=== PATIENT | female | born 1965 | race Caucasian/White ===

== ENCOUNTER 2024-07-08 09:50 | Outpatient (NON) | payer OTHER, SELFPAY ==
--- OUTSIDE RECORDS SUMMARY | 2024-07-08 10:59 | XMS_ITS | CONTINUITY OF CARE DOCUMENT ---
Author Name jazmine lucero Address Unknown Organization [facility] Address [address] [place] [address] Phone [phone] Care Team Providers Care Marble [employer]ber Name Role Phone Cuauhtemoc CARLOS, Jose Carlos Unavailable [phone] JURGEN JACOBO MD Unavailable [phone] JURGEN JACOBO MD Unavailable [phone] PROBLEMS Condition Status Date Provider Notes HYPERCHOLESTEROLEMIA;WILL TR Y LIPTRUZET active Jose Carlos Posadas MD HTN;LABS PER PRIMARY, BETTER AT HOME active Jose Carlos Posadas MD MITRAL REGURGITATION MILD;05 completed 200 11/26/19 - Jose Carlos Posadas MD TOBACCO ABUSE;CHANTAX NOT EFFECTIVE active Jose Carlos Posadas MD LVH;EF 60% completed - Jose Carlos Posadas MD BRADYCARDIA, SINUS;NOT DUE T O MEDS active Jose Carlos Posadas MD ATRIAL SEPTAL DEFECT; BY ECH O 05, NOT SEEN 2008 completed - Jose Carlos Posadas MD DIZZINESS;GONE WITHOUT BETABLOCKER active - Jose Carlos Posadas MD CHEST PAIN, ATYPICALL;NEG ROUTINE STRESS SUB MAX 2008 completed - Jose Carlos Posadas MD SNORING;NO SLEEP APNEA active Jose Carlos Posadas MD CARDIOMEGALY;MILD BY CXR 201 0, NOT ON ECHO 2008 completed - Jose Carlos Posadas MD FAMILY HISTORY OF HEART DISEASE active Brian Posadas MD COPD;NEG CHEYANNE 2009 active Jose Carlos Posadas MD DIAPHORESIS;SPELLS WITHOUT KNOWN ETIOLOGY completed - Jose Carlos Posadas MD OBESITY;WILL CONSIDER [facility] active Neha Posadas MD CAD;NML NUC AND ECHO 2010 active Jose Carlos steele MD ENCOUNTERS Date Type Provider Location Encounter Diag nosis - In-person encounter Office Visit Jose Carlos Posadas MD [facility] HYPERCHOLESTEROLEMIA;MEIR L TRY LIPTRUZETHTN;LABS PER PRIMARY, BETTER AT HOMETOBACCO ABUSE;CHANTAX NOT EFFECTIVEDIAPHORESIS;SPE LLS WITHOUT KNOWN ETIOLOGYOBESITY;WILL CONSIDER [facility] - In-person encounter Office Visit Jose Carlos Posadas MD [facility] TOBACCO ABUSE;CHANTAX NOT EFFECTIVEBRADYCARDIA, SINUS;NOT DUE TO MEDSATRIAL SEPTAL DEFECT; BY ECHO 05, NOT SEEN 2009DIZZINESS;GONE WITHOUT BETABLOCKERCHEST PAIN, ATYPICALL;NEG ROUTINE STRESS SUB MAX 2009SNORING;NO SLEEP APNEACARDIOMEGALY;MILD BY CXR 2009, NOT ON ECHO 2009COPD;NEG CHEYANNE 2010CAD;NML NUC AND ECHO 2010 - In-person encounter Office Visit Jose Carlos Posadas MD [facility] MITRAL REGURGITATION MILD;05LVH;EF 60% 05BRADYCARDIA, SINUS;NOT DUE TO MEDSSNORING;NO SLEEP APNEAFAMILY HISTORY OF HEART DISEASECOPD;NEG CHEYANNE 2010DIAPHORESIS;SPELLS WITHOUT KNOWN ETIOLOGYOBESITY;WILL CONSIDER [facility] - In-person encounter Office Visit Jose Carlos Posadas MD [facility] HYPERCHOLESTEROLEMIA;MEIR L TRY LIPTRUZETHTN;LABS PER PRIMARY, BETTER AT HOMETOBACCO ABUSE;CHANTAX NOT EFFECTIVEBRADYCARDIA, SINUS;NOT DUE TO MEDSATRIAL SEPTAL DEFECT; BY ECHO 05, NOT SEEN 2009DIZZINESS;GONE WITHOUT BETABLOCKERCHEST PAIN, ATYPICALL;NEG ROUTINE STRESS SUB MAX 2008 VITAL SIGNS Date Observation Value Provider blood pressure, diastolic, left arm 92 mm [Hg] Santiago Jean RN blood pressure, systolic, left arm 161 mm [Hg] Santiago Whitneysilvia COLE blood pressure, diastolic, right arm 93 m m[Hg] Santiago Whitneysilvia COLE blood pressure, systolic, right arm 151 m m[Hg] Santiago Jean DOUGLAS blood pressure, diastolic 92 mm[Hg] Manpreet alanis Jean RN blood pressure, systolic 161 mm[Hg] Santiago Whitneysilvia COLE pulse rate 86 /min Santiago Whitneysilvia COLE oxygen saturation, oximetry 98 % Santiago Whitneysilvia COLE respiratory rate E&M 16 /min Santiago barlow RN Body Mass Index (Ratio) 30.84 kg/m2 Santiago Whitneysilvia COLE weight E&M 179 [lb_av] Santiago Whitneysilvia COLE height E&M 64 [in_i] Santiago Whitneysilvia COLE blood pressure, diastolic, left arm 94 mm [Hg] Lawrence Manacop blood pressure, systolic, left arm 145 mm [Hg] Lawrence Manacop blood pressure, diastolic, right arm 86 m m[Hg] Lawrence Manacop blood pressure, systolic, right arm 132 m m[Hg] Lawrence Manacop blood pressure, diastolic 86 mm[Hg] Deepali lynda Man[place] blood pressure, systolic 132 mm[Hg] Viet sarabia Manacop pulse rate 78 /min Lawrence Manacop oxygen saturation, oximetry 97 % Lawrence Manacop respiratory rate E&M 20 /min Lawrence Manacop weight E&M 178 [lb_av] Lawrence Manacop blood pressure, diastolic, left arm 62 mm [Hg] Santiago Whitneysilvia COLE blood pressure, systolic, left arm 123 mm [Hg] Santiago Whitneysilvia COLE blood pressure, diastolic, right arm 72 m m[Hg] Santiago Whitneysilvia COLE blood pressure, systolic, right arm 124 m m[Hg] Santiago Whitneysilvia COLE blood pressure, diastolic 62 mm[Hg] Manpreet Jean RN blood pressure, systolic 123 mm[Hg] Santiago Miranda COLE pulse rate 52 /min Santiago Jean RN oxygen saturation, oximetry 98 % Santiago Jean RN respiratory rate E&M 16 /min Santiago Elijah barlow RN weight E&M 175 [lb_av] Santiago Jean RN blood pressure, diastolic 84 mm[Hg] Be tsy Chung blood pressure, systolic 128 mm[Hg] Bet chino Chung blood pressure, diastolic 90 mm[Hg] Da tiffany Porras blood pressure, systolic 125 mm[Hg] Sammy Porras pulse rate 56 /min Tanya Porras oxygen saturation, oximetry 96 % Tanya Porras respiratory rate E&M 16 /min Rosales Porras weight E&M 177 [lb_av] Tanya Porras ALLERGIES Allergy Name Onset Date Reaction Criticality Status ATENOLOL dizzy Low Criticality active RESULTS Date Observation Value Provider Reference Range Interpretation Location 3 triglyceride, serum, fasting 211 mg/dL [facility] 3 HDL cholesterol, serum 49 mg/dL [facility] 3 LDL cholesterol, serum 112 mg/dL [facility] 3 cholesterol, serum 204 mg/dL [facility] HISTORY OF MEDICATION USE Medication Status Instructions Dates Provider Indications Com ments LISINOPRIL 5 MG ORAL TABLET active ONE TAB. DAILY Ann Choi RN ZETIA 10 MG ORAL TABLET active ONE TAB. DAILY Ann Choi RN LIPTRUZET 10/40MG completed one tablet daily - Ann Choi RN LIPITOR 40 MG ORAL TABLET active one a day Ann Choi RN ESTRADIOL 0.1 MG/24HR TRANSDERMAL PATCH WEEKLY active daily Santiago Jean RN CHANTIX STARTING MONTH FRANCIE 0.5 MG X 11 & 1 MG X 42 ORAL TABLET completed One Pack. Take as directed. - Santiago Jean RN CHANTIX CONTINUING MONTH FRANCIE 1 MG ORAL TABLET completed One pack. Take as directed - Santiago Jean RN TRAZODONE HCL 50 MG ORAL TABLET active 1 tablet by mouth at bedtime Lawrence Carrion VENLAFAXINE HCL TABLET active 150mg daily Lawrence Carrion per patient's med list ASPIRIN 81 MG ORAL TABLET active ONE TAB. DAILY Jose Carlos Posadas MD ZETIA 10 MG ORAL TABLET completed ONE TAB. DAILY - Deepali Armstrong ATIVAN 0.5 MG ORAL TABLET active 1 tablet by mouth at bedtime Lawrence Carrion LEXAPRO 20 MG ORAL TABLET completed ONE TAB. DAILY - Santiago Jean RN PRAVACHOL 40 MG ORAL TABLET completed ONE TAB. DAILY - Jose Carlos Posadas MD ZESTRIL 5 MG ORAL TABLET completed ONE TAB. DAILY - Deepali Armstrong PRILOSEC 40 MG ORAL CAPSULE DELAYED RELEASE active ONE TAB. DAILY Misti Malik SOCIAL HISTORY Date Observation Value Provider chewing tobacco use no Jose Carlos horn MD cigar use no Jose Carlos Akers smoking/tobacco cess ation, patient education and counseling yes Jose Carlos Posadas MD alcohol use, average drinks per day social Santiago Jean RN drug use no Santiago Jean RN passive cigarette sm [place] exposure no Santiago Jean RN smoking history, tot al pack/day 1/8 Santiago Jean RN smoking history, tot al pack/year 30 Santiago Jean RN cigarette use yes Santiago Jean RN smoking, date started 1982 Royal alvarez RN social history reviewed E&M reviewed Santiago Jean RN smoking status smoker - current status unknown Deepali Armstrong social history reviewed E&M reviewed Jose Carlos Posadas MD smoking/tobacco cess ation, patient education and counseling yes Santiago Jean RN social history reviewed E&M reviewed Santiago Jean RN smoking status current Shayla Chung smoking/tobacco cess ation, patient education and counseling yes Santiago Jean RN social history E&M Marital Statu s: L divina with family/friends E thnicity: Santiago Jean RN social history reviewed E&M reviewed Santiago Jean RN physical exercise, f requency, days per week no [employer] caffeine use, averag e drinks per day yes [facility] alcohol use, average drinks per day none [facility] number of years as a smoker 10 years or m ore [facility] smoking status Smoker [facility] FUNCTIONAL STATUS Date Observation Value Provider periodic limb movement index absent (0) Shayla Chung MENTAL STATUS Date Observation Value Provider assessment of judgme nt and insight E&M Alert and oriented to time, place and person. Mood and affect are normal. Santiago Jean RN assessment of judgme nt and insight E&M Alert and oriented to time, place and person. Mood and affect are normal. Jose Carlos Posadas MD assessment of judgme nt and insight E&M Alert and oriented to time, place and person. Mood and affect are normal. Santiago Jean RN assessment of judgme nt and insight E&M Alert and oriented to time, place and person. Mood and affect are normal. Santiago Jean RN INSURANCE PROVIDERS Payer name Policy type / Coverage type [facility] ID ROCCO [facility] [id number] [address] [facility] [id number] TREATMENT PLAN Date Name Performer routine: O rders: Jovani milton Echo (CPT-53099) Jose Carlos Posadas MD routine: H er updated medication list for this problem includes: Zestril 5 Mg Tabs (Lisinopril) ..... One tab. daily Aspirin 81 Mg Tabs (Aspirin) ..... One tab. daily BP today: 161/92 P rior BP: 132/86 (11/11/2010) Prior 10 Yr Risk Heart Disease: Not enough information (11/13/2008) Orders: Jovani milton Echo (CPT-54538) Jose Carlos Posadas MD routine Jose Carlos Posadas MD routine: H er updated medication list for this problem includes: Zestril 5 Mg Tabs (Lisinopril) ..... One tab. daily Aspirin 81 Mg Tabs (Aspirin) ..... One tab. daily BP today: 161/92 Prior BP: 132/86 (11/11/2010) N uclear Stress Findings: 1. Regadenoson mediated myocardial perfusion study 2 . Normal left ventricular systolic function with a calculated ejection fraction of 56%. 3 . No obvious significant scintigraphic evidence of myocardial ischemia or scar. (11/26/2009) Orders: Jovani omplete Echo (CPT-99341) Jose Carlos Posadas MD routine: O rders: Jovani omplete Echo (CPT-04411) Jose Carlos Posadas MD routine: B P today: 161/92 Prior BP: 132/86 (11/11/2010) Pulmonary Functions Reviewed: O 2 sat: 98 (12/20/2012) Orders: Jovani omplete Echo (CPT-02952) Jose Carlos Posadas MD routine: H er updated medication list for this problem includes: Zestril 5 Mg Tabs (Lisinopril) ..... One tab. daily Pravachol 40 Mg Tabs (Pravastatin sodium) ..... One tab. daily Zetia 10 Mg Tabs (Ezetimibe) ..... One tab. daily Aspirin 81 Mg Tabs (Aspirin) ..... One tab. daily BP today: 161/92 Prior BP: 132/86 (11/11/2010) N uclear Stress Findings: 1. Regadenoson mediated myocardial perfusion study 2 . Normal left ventricular systolic function with a calculated ejection fraction of 56%. 3 . No obvious significant scintigraphic evidence of myocardial ischemia or scar. (11/26/2009) Orders: E KG (CPT-78435) C omplete Echo (CPT-37360) Jose Carlos Posadas MD Yearly follow-up: H er updated medication list for this problem includes: Pravachol 40 Mg Tabs (Pravastatin sodium) ..... One tab. daily Zetia 10 Mg Tabs (Ezetimibe) ..... One tab. daily Jose Carlos Posadas MD Yearly follow-up Jose Carlos Akers Yearly follow-up: O rders: X -Ray, Chest, PA & Lateral (CPT-03835) Jose Carlos Posadas MD Yearly follow-up: H er updated medication list for this problem includes: Zestril 5 Mg Tabs (Lisinopril) ..... One tab. daily Pravachol 40 Mg Tabs (Pravastatin sodium) ..... One tab. daily Zetia 10 Mg Tabs (Ezetimibe) ..... One tab. daily Aspirin 81 Mg Tabs (Aspirin) ..... One tab. daily Orders: X -Ray, Chest, PA & Lateral (CPT-54176) Jose Carlos Posadas MD Yearly follow-up: O rders: X -Ray, Chest, PA & Lateral (CPT-55887) Jose Carlos Posadas MD Yearly follow-up: O rders: X -Ray, Chest, PA & Lateral (CPT-64506) Jose Carlos Posadas MD Yearly follow-up: H er updated medication list for this problem includes: Zestril 5 Mg Tabs (Lisinopril) ..... One tab. daily Aspirin 81 Mg Tabs (Aspirin) ..... One tab. daily Orders: X -Ray, Chest, PA & Lateral (CPT-64498) Jose Carlos Posadas MD Yearly follow-up: H er updated medication list for this problem includes: Zestril 5 Mg Tabs (Lisinopril) ..... One tab. daily Ativan 0.5 Mg Tabs (Lorazepam) ..... 1 tablet by mouth at bedtime Aspirin 81 Mg Tabs (Aspirin) ..... One tab. daily Orders: E KG (CPT-56631) X -Ray, Chest, PA & Lateral (CPT-16233) Jose Carlos Posadas MD palpitations- fatigu e : O rders: S lee Study (*) C omplete Echo (CPT-00208) H olter Monitor 24 Hr (CPT-59864) S pirometry (CPT-36467) Jose Carlos Posadas MD palpitations- fatigu e : O rders: S tress Test - Adenosine (96123) Jose Carlos Posadas MD palpitations- fatigu e : H er updated medication list for this problem includes: Zestril 5 Mg Tabs (Lisinopril) ..... One tab. daily intstead of atenolol to improve dizziness Aspirin 81 Mg Tabs (Aspirin) ..... One tab. daily Orders: S leep Study (*) C omplete Echo (CPT-57391) H olter Monitor 24 Hr (CPT-58577) S pirometry (CPT-69920) S tress Test - Adenosine (37521) Jose Carlos Posadas MD palpitations- fatigu e : H er updated medication list for this problem includes: Zestril 5 Mg Tabs (Lisinopril) ..... One tab. daily intstead of atenolol to improve dizziness Aspirin 81 Mg Tabs (Aspirin) ..... One tab. daily BP today: 123/62 P rior BP: 128/84 (11/13/2008) Prior 10 Yr Risk Heart Disease: Not enough information (11/13/2008) Orders: S leep Study (*) C omplete Echo (CPT-62157) Jose Carlos Posadas MD palpitations- fatigu e : H er updated medication list for this problem includes: Pravachol 40 Mg Tabs (Pravastatin sodium) ..... One tab. daily Zetia 10 Mg Tabs (Ezetimibe) ..... One tab. daily BP today: 123/62 Prior BP: 128/84 (11/13/2008) Jose Carlos Posadas MD palpitations- fatigu e : B P today: 123/62 Prior BP: 128/84 (11/13/2008) E chocardiogram: Normal left ventricular systolic function. Normal left ventricular size. Normal left ventricular wall thickness. Normal E/E` 4.0. LVEF 60%. Normal pericardium with no significant pericardial effusion. N ormal aortic root. GC (11/28/2008) Orders: H olter Monitor 24 Hr (CPT-05573) S pirometry (CPT-61124) S tress Test - Adenosine (92107) Jose Carlos Posadas MD palpitations- fatigu e : H er updated medication list for this problem includes: Zestril 5 Mg Tabs (Lisinopril) ..... One tab. daily intstead of atenolol to improve dizziness Aspirin 81 Mg Tabs (Aspirin) ..... One tab. daily BP today: 123/62 Prior BP: 128/84 (11/13/2008) Orders: C omplete Echo (CPT-38368) H olter Monitor 24 Hr (CPT-75211) S pirometry (CPT-92385) S tress Test - Adenosine (03014) Jose Carlos Posadas MD palpitations- fatigu e : H er updated medication list for this problem includes: Zestril 5 Mg Tabs (Lisinopril) ..... One tab. daily intstead of atenolol to improve dizziness Ativan 0.5 Mg Tabs (Lorazepam) Aspirin 81 Mg Tabs (Aspirin) ..... One tab. daily BP today: 123/62 Prior BP: 128/84 (11/13/2008) E chocardiogram: Normal left ventricular systolic function. Normal left ventricular size. Normal left ventricular wall thickness. Normal E/E` 4.0. LVEF 60%. Normal pericardium with no significant pericardial effusion. N ormal aortic root. (11/28/2008) O rders: C omplete Echo (CPT-24373) H olter Monitor 24 Hr (CPT-11893) S pirometry (CPT-30363) S tress Test - Adenosine (29066) Jose Carlos Posadas MD palpitations- fatigu e : O rders: S lee Study (*) C omplete Echo (CPT-33065) H olter Monitor 24 Hr (CPT-59523) S pirometry (CPT-29461) S tress Test - Adenosine (78888) Jose Carlos Posadas MD palpitations- fatigu e : H er updated medication list for this problem includes: Zestril 5 Mg Tabs (Lisinopril) ..... One tab. daily intstead of atenolol to improve dizziness Ativan 0.5 Mg Tabs (Lorazepam) Aspirin 81 Mg Tabs (Aspirin) ..... One tab. daily BP today: 123/62 Prior BP: 128/84 (11/13/2008) E chocardiogram: Normal left ventricular systolic function. Normal left ventricular size. Normal left ventricular wall thickness. Normal E/E` 4.0. LVEF 60%. Normal pericardium with no significant pericardial effusion. N ormal aortic root. (11/28/2008) Jose Carlos Posadas MD palpitations- fatigu e : H er updated medication list for this problem includes: Zestril 5 Mg Tabs (Lisinopril) ..... One tab. daily intstead of atenolol to improve dizziness Aspirin 81 Mg Tabs (Aspirin) ..... One tab. daily BP today: 123/62 Prior BP: 128/84 (11/13/2008) E chocardiogram: Normal left ventricular systolic function. Normal left ventricular size. Normal left ventricular wall thickness. Normal E/E` 4.0. LVEF 60%. Normal pericardium with no significant pericardial effusion. N ormal aortic root. (11/28/2008) Orders: H olter Monitor 24 Hr (CPT-10666) S pirometry (CPT-35679) S tress Test - Adenosine (95331) Jose Carlos Posadas MD sinusbrady due to me ds, will change due to dizzyness: H er updated medication list for this problem includes: Zestril 5 Mg Tabs (Lisinopril) ..... One tab. daily intstead of atenolol to improve dizziness Aspirin 81 Mg Tabs (Aspirin) ..... One tab. daily Orders: S tress Test - Routine (CPT-54374) BP today: 125/90 Prior BP: / () E chocardiogram: LVH. EF 60%. Diastolic dysfunction. Trno-ps-hkwwj shunt at interatrial septum. ASD to be considered. SIXTO is suggested. Trace MR. Trace PI. Trace TR. [facility] (06/23/2004) Jose Carlos Posadas MD sinusbrady due to me ds, will change due to dizzyness: H er updated medication list for this problem includes: Zestril 5 Mg Tabs (Lisinopril) ..... One tab. daily intstead of atenolol to improve dizziness Ativan 0.5 Mg Tabs (Lorazepam) Aspirin 81 Mg Tabs (Aspirin) ..... One tab. daily BP today: 125/90 Prior BP: / () E chocardiogram: LVH. EF 60%. Diastolic dysfunction. Cxzi-iq-whlhy shunt at interatrial septum. ASD to be considered. SIXTO is suggested. Trace MR. Trace PI. Trace TR. [facility] (06/23/2004) Jose Carlos Posadas MD sinusbrady due to me ds, will change due to dizzyness: O rders: C omplete Echo (CPT-09528) Jose Carlos Posadas MD sinusbrady due to me ds, will change due to dizzyness: H er updated medication list for this problem includes: Zestril 5 Mg Tabs (Lisinopril) ..... One tab. daily intstead of atenolol to improve dizziness Ativan 0.5 Mg Tabs (Lorazepam) Aspirin 81 Mg Tabs (Aspirin) ..... One tab. daily BP today: 125/90 Prior BP: / () E chocardiogram: LVH. EF 60%. Diastolic dysfunction. Tejm-ba-wxrip shunt at interatrial septum. ASD to be considered. SIXTO is suggested. Trace MR. Trace PI. Trace TR. [facility] (06/23/2004) Jose Carlos Posadas MD sinusbrady due to me ds, will change due to dizzyness: H er updated medication list for this problem includes: Pravachol 40 Mg Tabs (Pravastatin sodium) ..... One tab. daily Zetia 10 Mg Tabs (Ezetimibe) ..... One tab. daily BP today: 125/90 Prior BP: / () Jose Carlos Posadas MD sinusbrady due to me ds, will change due to dizzyness: H er updated medication list for this problem includes: Zestril 5 Mg Tabs (Lisinopril) ..... One tab. daily intstead of atenolol to improve dizziness Aspirin 81 Mg Tabs (Aspirin) ..... One tab. daily BP today: 125/90 Jose Carlos Posadas MD sinusbrady due to me ds, will change due to dizzyness: H er updated medication list for this problem includes: Zestril 5 Mg Tabs (Lisinopril) ..... One tab. daily intstead of atenolol to improve dizziness BP today: 125/90 Prior BP: / () E chocardiogram: LVH. EF 60%. Diastolic dysfunction. Oayn-nw-ugkxe shunt at interatrial septum. ASD to be considered. SIXTO is suggested. Trace MR. Trace PI. Trace TR. [facility] (06/23/2004) Jose Carlos Posadas MD Date Name LIPID PANEL Complete Echo X-Ray, Chest, PA & L ateral Stress Test - Adenos ine Spirometry Holter Monitor 24 Hr Complete Echo Sleep Study X-Ray, Chest, PA & L ateral Complete Echo Stress Test - Routin e HISTORY OF PROCEDURES Procedure Date Procedure Name Provider Procedure Notes S tatus ePrescribe - Check t his box if eRx is used Jose Carlos Posadas MD completed EKG Jose Carlos Posadas MD complete d EKG Jose Carlos Posadas MD complete d EKG Jose Carlos Posadas MD complete d EKG Jose Carlos Posadas MD complete d
--- OUTSIDE RECORDS SUMMARY | 2024-07-08 10:59 | XMS_ITS | Clinical Summary ---
Author Organization [facility] Address [address] [place] [address] Care Team Providers Care Cattle Sorter Name Role Phone Diallo Torres MD Primary Care Provider [phone] Allergies Active Allergy Reactions Criticality Noted Date Comments Ciprofloxacin Rash Low 10/04/2019 Sulfamethoxazole-Trimethoprim Rash Medium 2019 Medications busPIRone 10 MG tablet Take 10 mg by mouth 3 (three) times daily. 2 01/24/20 19 Active aspirin EC 81 MG tablet Take 81 mg by mouth daily. Active albuterol sulfate HFA (PROAIR HFA) 108 (90 Base) MCG/ACT inhaler Inhale 2 puffs into the lungs every 4 (four) hours as needed. 01/27/20 15 Active acyclovir 5 % ointment Apply 1 Application topically daily as needed. 04/25/19 15 Active Cholecalciferol (VITAMIN D) 50 MCG (2000 UT) Tab Take 2,000 Units by mouth daily. Active dicyclomine 10 MG capsule Take 10 mg by mouth as needed. Active divalproex ER 500 MG 24 hr tablet Take 500 mg by mouth daily. 6 01/24/20 19 Active ezetimibe 10 MG tablet Take 10 mg by mouth daily. 11/27/19 15 Active lisinopril 10 MG tablet Take 10 mg by mouth daily. Active omeprazole 40 MG capsule Take 40 mg by mouth daily. 01/27/20 15 Active LORazepam 0.5 MG tablet Take 0.5 mg by mouth daily as needed. 01/06/20 15 Active celecoxib (CELEBREX) 200 MG capsule Take 1 capsule (200 mg total) by mouth 2 (two) times daily. 04/18/19 25 Active cyclobenzaprine (FLEXERIL) 10 MG tablet Take 1 tablet (10 mg total) by mouth 3 (three) times daily. 05/23/19 25 Active DULoxetine (CYMBALTA) 60 MG capsule Take 1 capsule (60 mg total) by mouth daily. 04/17/19 25 Active fenofibrate (TRICOR) 145 MG tablet Take 1 tablet (145 mg total) by mouth daily. 04/17/19 25 Active rosuvastatin (CRESTOR) 5 MG tablet Take 1 tablet (5 mg total) by mouth daily. 08/07/19 24 Active atorvastatin 40 MG tablet Take 40 mg by mouth daily. 01/27/20 15 025 Discontin ued(Thera py completed ) docusate sodium 100 MG capsule Take 100 mg by mouth. 07/05/19 025 Discontin ued(Thera py completed ) estradiol 1 MG tablet Take 1 mg by mouth daily. 01/27/20 15 025 Discontin ued(Thera py completed ) meloxicam 15 MG tablet Take 15 mg by mouth daily. 5 01/24/20 19 025 Discontin ued(Thera py completed ) metaxalone 800 MG tablet Take 800 mg by mouth 3 (three) times daily as needed. 3 01/24/20 19 025 Discontin ued(Thera py completed ) ondansetron 4 MG disintegrating tablet Take 4 mg by mouth every 8 (eight) hours as needed. 01/27/20 15 025 Discontin ued(Thera py completed ) Venlafaxine HCl (VENLAFAXINE XR) 225 MG TABLET SR 24 HR 24 hr tablet Take 225 mg by mouth daily. 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) 11/12/2009 Bradycardia, sinus 11/13/2008 Essential (primary) hypertension 11/13/2008 Encounters Date Type Department Care Team Description 05/15/2024 Telephone [facility] [address] [facility] [place] [address] Ander Grimm, RADON INSPECTOR Appointment Request from Last 3 Months Immunizations Immunization Administration Dates Next Due MODERNA COVID-19 (12+) MRNA, LNP-S, PF, 100 MCG/ 0.5 ML DOSE 04/13/2020,03/16/2020 Family History Medical History Relation Comments Cancer Brother Heart Disease Brother Hypertension Father Cancer Maternal Grandmother Hypertension Mother Stroke Mother Cancer Paternal Grandmother Cancer Sister Heart Disease Sister Relation Status Comments Brother Father Maternal Grandmother Mother Paternal Grandmother Sister Social History Tobacco Use Types Packs/Day Years Used Date Smoking Tobacco: Every Day Cigarettes Smokeless Tobacco: Never Alcohol Use Standard Drinks/Week Comments Not Currently 0 (1 standard drink = 0.6 oz pur e alcohol) Comments Unknown Sex and Gender Information Value Date Recorded Sex Assigned at Not on file Legal Sex Female 10:54 PM CDT Gender Identity Not on file Sexual Orientation Not on file Last Filed Vital Signs Vital Sign Reading Time Taken Comments Blood Pressure 150/66 10/04/2019 9:05 AM CDT Pulse 69 10/04/2019 9:05 AM CDT Temperature 36 C (96.8 F) 10/04/2019 9:05 AM CDT Respiratory Rate 18 10/04/2019 9:05 AM CDT Oxygen Saturation 100% 10/04/2019 9:05 AM CDT Inhaled Oxygen Concentration - - Weight 83.5 kg (184 lb) 09/30/2019 11:14 AM CDT Height 162.6 cm (5' 4 ) 09/30/2019 11:14 AM CDT Body Mass Index 31.58 09/30/2019 11:14 AM CDT Plan of Treatment Health Maintenance Due Date Last Done Comments ASCVD LDL 1963 Annual Physical 1966 Hepatitis C 1981 DTaP, Tdap and Td Vaccines ( 1 - Tdap) 1982 Pneumococcal Vaccine: 50+ Years (1 of 2 - PCV) 1982 Zoster Vaccines (1 of 2) 2013 RSV Immunization or 60+ Years (1 - Risk 60-74 years 1-dose series) 2023 COVID-19 Vaccine (2023-2 5 season) 2023 04/13/2020, 03/16/2020 Mammogram Screening 10/28/2024 10/28/2022, 05/28/2021, 01/24/2020 Colorectal Cancer Screening Colonoscopy (10 Years) 10/03/2029 10/04/2019, 10/04/2019 Meningococcal B Vaccine Aged Out No l onger eligible based on patient's age to complete this topic Meningococcal Vaccine Aged Out No lili erika eligible based on patient's age to complete this topic RSV Immunizations Under 20 Months Aged Out No longer eligible b ased on patient's age to complete this topic Procedures Procedure Name Priority Date/Time Associated Diagnosis Comments MG SCREENING W GALILEO ALBINO DIGI Routine 10/28/2022 1:29 PM CDT Visit for screening mammogram COLONOSCOPY 10/04/2019 8:31 AM CDT from Last 3 Months or Most Recently Relevant to Health Maintenance Results * MG SCREENING W GALILEO ALBINO DIGI (10/28/2022 1:29 PM CDT) Anatomical Region Laterality Modality Breast Bilateral Mammography 10/31/2022 9:43 AM CDT Narrative 10/31/2022 9:44 AM CDT EXAMINATION: BILATERAL SCREENING MAMMOGRAPHY Exam Date: 10/28/2022 12:28 PM CLINICAL INDICATION: 57 years of age female routine screening. COMPARISON: Dating back to 07/26/2013 TECHNIQUE: Digital CC & MLO views. Tomosynthesis imaging acquisition Study read with the assistance of a computer-aided detection system. TISSUE DENSITY: The breast tissue is heterogeneously dense, which may obscure small masses. FINDINGS: No suspicious grouping of microcalcifications, architectural distortion, or new dominant suspicious nodule 3 dimensionally demonstrated in either breast. IMPRESSION: No interval features to suggest malignancy. . RECOMMENDATION: Annual supplemental screening is encouraged for her with dense breast tissue. Highest sensitivity and cancer detection rate is with MRI breast with/without IV gadolinium contrast. If she cannot tolerate or get approval of MRI, then automated breast ultrasound screening is an alternative. Routine Screening, Bilateral Mammogram in 1 year ASSESSMENT: ACR BI-RADS 1 - NEGATIVE Ordered By: DIALLO TORRES Interpreted By: Reed Cornejo MD, 10/31/2022 9:43 AM us Diallo Torres MD MAMMO Final Resul t * COLONOSCOPY (10/04/2019 8:31 AM CDT) us Jordin Del Castillo MD GI PROCEDURE ORDERABLES Final Result from Last 3 Months or Most Recently Relevant to Health Maintenance Insurance [place] [id number] Care Teams Cattle Sorter Relationship Specialty Start Date End Date Diallo Torres MD [address] [place] [id number] PCP - General FAMILY PRACTICE 02/06/19
--- OUTSIDE RECORDS SUMMARY | 2024-07-08 10:59 | XMS_ITS | Encounter Summary ---
Author Organization [facility] Address [facility] [place] [address] Care Team Providers Care Prosthetics Assistant Name Role Phone Diallo Torres MD Primary Care Provider [phone] Encounter Details Date Type Department Care Team (Late st Contact Info) Description 08/25/2018 Abstract [facility]FL CONVERSION [address] [place] [address] , Generic Conversion, Social History Tobacco Use Types Packs/Day Years Used Date Smoking Tobacco: Never Assessed Comments Unknown Sex and Gender Information Value Date Recorded Sex Assigned at Not on file Legal Sex Female 10:54 PM CDT Gender Identity Not on file Sexual Orientation Not on file documented as of this encounter Plan of Treatment Not on file documented as of this encounter Visit Diagnoses Not on filedocumented in this encounter Additional Health Concerns Infection Onset Date Last Indicated Resolved Time COVID-19 Rule Out 10/01/2019 10/01/2019 10/02/2019 6:28 PM CDT documented as of this encounter Care Teams Prosthetics Assistant Relationship Specialty Start Date End Date Diallo Torres MD [address] [place] [id number] PCP - General FAMILY PRACTICE 02/06/19 documented as of this encounter
--- OUTSIDE RECORDS SUMMARY | 2024-07-08 10:59 | XMS_ITS | Encounter Summary ---
Author Organization [facility] Address [facility] [place] [address] Care Team Providers Care Pearl Maker Name Role Phone Diallo Torres MD Primary Care Provider [phone] Encounter Details Date Type Department Care Team (Late st Contact Info) Description 12/23/2022 [employer] Message [facility] [place] [address] [facility] Payment Plan Social History Tobacco Use Types Packs/Day Years [...] Diagnoses Not on filedocumented in this encounter Care Teams Pearl Maker Relationship Specialty Start Date End Date Diallo Torres MD [address] [place] [address] PCP - General FAMILY PRACTICE 02/06/19 documented as of this encounter
--- OUTSIDE RECORDS SUMMARY | 2024-07-08 10:59 | XMS_ITS | Encounter Summary ---
Author Organization [facility] Address [facility] [place] [address] Care Team Providers Care Supervisor Quilting Name Role Phone Diallo Torres MD Primary Care Provider [phone] Encounter Details Date Type Department Care Team (Late st Contact Info) Description 01/27/2022 [employer] Message [facility] Patient Accounts [address] [place], [place] [address] [facility] Provider Financial Assistance Social History Tobacco Use Types Packs/Day Years [...] on filedocumented in this encounter Care Teams Supervisor Quilting Relationship Specialty Start Date End Date Diallo Torres MD [address] [place] [id number] PCP - General FAMILY PRACTICE 02/06/19 documented as of this encounter
--- OUTSIDE RECORDS SUMMARY | 2024-07-08 11:00 | XMS_ITS | Patient Health Record ---
Author Organization [facility] Address [address] [facility] [address] [place] [address] Care Team Providers Care Housing Quality Standard Inspector Name Role Phone Diallo Torres Primary Care Provider Unavailab monique RAMOS MD, PELON Unavailable [phone] ALLERGIES Allergen (clinical drug ingredient) Drug/Non Drug Allergy documented on EMR Reaction Allergy Type Onset Date Status Septra rash Drug Allergy Active REASON FOR REFERRAL No Information MEDICATIONS Medication SIG (Take, Route, Frequency, Duration) Notes Start Date End Date Status Estradiol 1 MG 1 tablet Orally Ne y for Three Weeks, 1 Week off for 30 day(s) Active Omeprazole 40 MG 1 capsule Orally Onc e a day for 30 day(s) Active Meloxicam 15 MG 1 tablet Orally Once a day for 30 day(s) Active Ezetimibe 10 MG 1 tablet Orally Once a day for 30 day(s) Active Lisinopril 5 MG 1 tablet Orally Once a day for 30 day(s) Active Atorvastatin Calcium 40 MG 1 tablet Oral ly Once a day for 30 day(s) Active Aspirin 81 MG 1 tablet Orally Once a day for 30 day(s) Active Vitamin D Active Venlafaxine HCl ER 75 MG 3 caps Orally O nce a day for 30 day(s) Active Divalproex Sodium ER 500 MG as directed Orally Active SOCIAL HISTORY Tobacco Use: Social History Observation Description Date Details (start date - stop date) Current Smoker NA - NA Sex Assigned At : Social History Observation Description Sex Assigned At Unknown Tobacco Use/Smoking Question Answer Notes Are you a current smoker How often do you smoke cigarettes? every day Additional Findings: Tobacco User Heavy cigarett e smoker (20-39 cigs/day) PLAN OF TREATMENT No Information Insurance Providers Payer Name Payer Address Payer Phone Subscriber Number Group Number Insured Name Patient Relationship to Insured Coverage Start Date Coverage End Date [place] [address] [place] [address] [phone] [id number] Amanda Romero Self - patient is the insured [employer] [address] [place], [place] [id number] [phone] [id number] Amanda Romero Self - patient is the insured [place] [address] [place], [place] [id number] Amanda Romero Self - patient is the insured MEDICAL (GENERAL) HISTORY Medical History History ICD Code Appendiceal carcinoid Anxiety Depression Hypertension GERD Surgical History Surgery Date(Month/Year) Hysterectomy Right colectomy Colonoscopy 2017
--- OUTSIDE RECORDS SUMMARY | 2024-07-08 11:00 | XMS_ITS | Referral Summary ---
Author Organization [facility] Address [address] [place] [address] Care Team Providers Care Inner Diameter Grinder Tool Name Role Phone Diallo Torres MD Primary Care Provider [phone]- [phone] Allergies Active Allergy Reactions Criticality Noted Date Comments Sulfamethoxazole-Trimethoprim Rash Medium Medications meloxicam (MOBIC) 15 mg tablet Take 15 mg by mouth every morning Active lisinopril (PRINIVIL,ZESTR [place]) 10 mg tablet Take 10 mg by mouth every morning Active atorvastatin (LIPITOR) 40 mg tablet Take 40 mg by mouth every morning Active omeprazole (PriLOSEC) 40 mg capsule Take 40 mg by mouth every morning Active ezetimibe (ZETIA) 10 mg tablet Take 10 mg by mouth every morning Active divalproex DR (DEPAKOTE) 500 mg EC tablet Take 500 mg by mouth every morning Active venlafaxine 225 mg tablet extended release 24hr 24 hr tablet Take 225 mg by mouth daily with breakfast Active aspirin 81 mg enteric coated tablet Take 81 mg by mouth every morning Active LORazepam (ATIVAN) 0.5 mg tablet Take 0.5 mg by mouth every 6 (six) hours as needed for anxiety Active dicyclomine (BENTYL) 10 mg capsule Take 10 mg by mouth 3 (three) times a day Active cholecalciferol (VITAMIN D-3) 2,000 unit tablet Take 2,000 Units by mouth every morning Active estradiol (ESTRACE) 1 mg tablet Take 1 mg by mouth every morning Active HYDROcodone-matthias taminophen (NORCO) 5-325 mg per tabletIndicatio ns:Pain Take 1-2 tablets by mouth every 4 (four) hours as needed for pain 40 tablet 9 Active docusate sodium (COLACE) 100 mg capsuleIndicati ons:constipatio n Take 1 capsule (100 mg total) by mouth 2 (two) times a day as needed for constipation with a glass of water 9 Active Active Problems Problem Noted Date Diagnosed Date Hypertension 06/21/2018 Hyperlipidemia 06/21/2018 Anxiety and depression 06/21/2018 GERD (gastroesophageal reflux disease) 9 Current every day smoker 06/21/2018 Resolved Problems Problem Noted Date Diagnosed Date Resolved Date RUQ abdominal pain 06/21/2018 9 Overview (06/21/2018): Added automatically from request for surgery [id number] Social History Tobacco Use Types Packs/Day Years Used Date Smoking Tobacco: Every Day Cigarettes 1.5 20 Smokeless Tobacco: Never Alcohol Use Standard Drinks/Week Comments Yes 0 (1 standard drink = 0.6 oz pur e alcohol) Occasional social use Personal Safety Answer Date Recorded Getting School Help Needed Not on file 06/02 Comments Unknown Sex and Gender Information Value Date Recorded Sex Assigned at Not on file Legal Sex Female 6:11 AM CAR BODY MECHANIC Gender Identity Not on file Sexual Orientation Not on file 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 Not on file Not on f ile Not on file Last Filed Vital Signs Vital Sign Reading Time Taken Comments Blood Pressure 159/72 07/04/2018 8:59 AM CDT Pulse 67 07/04/2018 8:59 AM CDT Temperature 36.7 C (98.1 F) 07/04/2018 8:59 AM CDT Respiratory Rate 18 07/04/2018 8:59 AM CDT Oxygen Saturation 96% 07/04/2018 8:59 AM CDT Inhaled Oxygen Concentration - - Weight 81 kg (178 lb 9.2 oz) 07/03/2018 9:08 AM CDT Height 162.6 cm (5' 4 ) 06/21/2018 11:55 AM CDT Body Mass Index 30.65 06/21/2018 11:55 AM CDT Plan of Treatment Not on file Insurance [facility] CHOICE [facility] CHOICE [facility] [place]PO [place] [facility] [place] CHOICE [place] P[place] Advance Directives For more information, please contact: [phone] * Full Code (Latest Code Status on File) Date Activated Date Inactivated Comments 07/03/2018 3:09 PM 07/04/2018 3:12 PM Care Teams Inner Diameter Grinder Tool Relationship Specialty Start Date End Date Diallo Torres MD [address] [place] [address] PCP - General 04/28/17
--- OUTSIDE RECORDS SUMMARY | 2024-07-08 11:00 | XMS_ITS | Clinical Summary ---
Author Organization [facility] Address [address] [place] [address] Care Team Providers Care Casino Floor Person Name Role Phone Diallo Torres MD Primary Care Provider [phone]- [phone] Allergies Active Allergy Reactions Criticality Noted Date [...] (06/21/2018): Added automatically from request for surgery [id number] Surgical History Surgery Date Site/Laterality Comments SECTION 03/20/1983 - 03/19/1984 HYSTERECTOMY W/ BILATERAL SALPINGOOPHORECTOMY 03/20/1993 - 03/19/1994 COLON SURGERY 03/20/1993 - 03/19/1994 Right Appendiceal carcinoma ADHESIOLYSIS For pain, not obstruction. Laparoscopic. ORIF ANKLE FRACTURE 03/20/2013 - 03/19/2014 Right Medical History Medical History Date Comments PONV (postoperative nausea and vomiting) Motion sickness Hypertension Hyperlipidemia History of transfusion Cancer (HCC) In appendics Family History Medical History Relation Name Comments Heart attack Brother 1 Tom Colon cancer Brother 2 Sy Heart attack Brother 2 Sy Pancreatic cancer Brother 2 Sy Lung cancer Brother 3 Zacarias Throat cancer Brother 3 Zacarias Hypertension Father Diabetes Mother Hypertension Mother Hernia Other Heart attack Sister 1 Missy Heart attack Sister 2 Martha Relation Name Status Comments Brother 1 Tom Brother 2 Sy Brother 3 Zacarias Father Mother Other Sister 1 Missy Alive Sister 2 Martha Social History Tobacco Use Types Packs/Day Years [...] on file Legal Sex Female 6:11 AM EMERGENCY COMMUNICATIONS OFFICER Gender Identity Not on file Sexual Orientation Not on file 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 PPO [place] Advance Directives For more information, please contact: [phone] * Full Code (Latest Code Status on File) Date Activated Date Inactivated Comments 07/03/2018 3:09 PM 07/04/2018 3:12 PM Care Teams Casino Floor Person Relationship Specialty Start Date End Date Diallo Torres MD [address] [facility] [place] [address] PCP - General 04/28/17
== END 2024-07-08 09:51 | disposition home or self-care (01) ==
LOC: ANHGOSHLAB 09:50
PROVIDERS: Visit Provider Student in an Organized Health Care Education/Training Program
DX: R39.9 Unspecified symptoms and signs involving the genitourinary system (principal)
CPT/HCPCS: 87086

== ENCOUNTER 2024-10-19 10:44 | Outpatient (CLI) | payer OTHER, SELFPAY ==
--- NOTE | ~2024-10-19 | MM_ITS ---
EXAMINATION: MM screening hardeep BI w reid HISTORY: Screening TECHNIQUE: Craniocaudal and mediolateral oblique 3-D tomosynthesis images were obtained and synthetic 2-D images were generated. CAD analysis was submitted and interpreted. COMPARISON: None available. BREAST PARENCHYMAL COMPOSITION: The breasts are heterogeneously dense, which may obscure small masses . FINDINGS: There is no evidence of suspicious mass, calcification, or architectural distortion to sug gest malignancy in either breast. IMPRESSION: 1. No mammographic evidence of malignancy. 2. Recommend routine screening mammography in one year. BI-RADS Category 1: Negative Reviewed, dictated and finalized at location B.
== END 2024-10-19 10:45 | disposition home or self-care (01) ==
LOC: MICIMG 10:44
PROVIDERS: PCP Nurse Practitioner Family; Visit Provider Nurse Practitioner Family
DX: Z12.31 Encounter for screening mammogram for malignant neoplasm of breast (principal)
CPT/HCPCS: 77063; 77067

== ENCOUNTER 2024-11-05 08:27 | Outpatient (CLI) | payer OTHER, SELFPAY ==
--- OUTSIDE RECORDS SUMMARY | 2024-11-05 08:47 | XMS_ITS | Patient Health Record ---
Author Organization [facility] Address [address] [facility] [place] [address] Care Team Providers Care International Sourcing Manager Name Role Phone Diallo Torres Primary Care Provider Unavailab monique RAMOS MD, PELON Unavailable Allergies Allergen (clinical drug ingredient) Drug/Non Drug Allergy documented on EMR Reaction Allergy Type Onset Date Status Septra rash Drug Allergy Active Reason For Referral No Information Medications Medication SIG (Take, Route, Frequency, Duration) Notes Start Date End Date Status Estradiol 1 MG 1 tablet Orally Ne y for Three Weeks, 1 Week off; Duration: 30 day(s) Active Omeprazole 40 MG 1 capsule Orally Onc e a day; Duration: 30 day(s) Active Meloxicam 15 MG 1 tablet Orally Once a day; Duration: 30 day(s) Active Ezetimibe 10 MG 1 tablet Orally Once a day; Duration: 30 day(s) Active Lisinopril 5 MG 1 tablet Orally Once a day; Duration: 30 day(s) Active Atorvastatin Calcium 40 MG 1 tablet Oral ly Once a day; Duration: 30 day(s) Active Aspirin 81 MG 1 tablet Orally Once a day; Duration: 30 day(s) Active Vitamin D Active Venlafaxine HCl ER 75 MG 3 caps Orally O nce a day; Duration: 30 day(s) Active Divalproex Sodium ER 500 MG as directed Orally Active Social History Tobacco Use: Social History Observation Description Date Details (start date - stop date) Current Smoker NA - NA Tobacco Use/Smoking Question Answer Notes Are you a current smoker How often do you smoke cigarettes? every day Additional Findings: Tobacco User Heavy cigarett e smoker (20-39 cigs/day) Plan Of Treatment No Information Insurance Providers Payer Name Payer Address Payer Phone Subscriber Number Group Number Insured Name Patient Relationship to Insured Coverage Start Date Coverage End Date [place] [address] [place] [address] [phone] [id number] Amanda Romero Self - patient is the insured [employer] [address] [place], [place] [id number] [phone] [id number] Amanda Romero Self - patient is the insured [place] [address] [place], [place] [id number] Amanda Romero Self - patient is the insured Medical (General) History Medical History History ICD Code Appendiceal carcinoid Anxiety Depression Hypertension GERD Surgical History Surgery Date(Month/Year) Hysterectomy Right colectomy Colonoscopy 2017
--- OUTSIDE RECORDS SUMMARY | 2024-11-05 08:47 | XMS_ITS | Clinical Summary ---
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 PPO [place] Advance Directives For more information, please contact: [phone] * Full Code (Latest Code Status on File) Date Activated Date Inactivated Comments 07/03/2018 3:09 PM 07/04/2018 3:12 PM Care Teams Computer Service Technician Relationship Specialty Start Date End Date Diallo Torres MD [address] [place] [address] PCP - General 04/28/17
[2024-11-05 13:36] LABS: Alanine Aminotransferase 20 U/L (6-35); Albumin Level 4.3 g/dL (3.5-5.1); Alkaline Phosphatase 56 U/L (38-126); Anion Gap 9 mmol/L (4-12); Aspartate Amino Transferase 46 U/L (14-36); Bilirubin,Total 0.2 mg/dL (0.2-1.3); Blood Urea Nitrogen 23 mg/dL (7-17); Calcium 9.3 mg/dL (8.4-10.2); Carbon Dioxide 25 mmol/L (22-30); Chloride 105 mmol/L (98-107); Cholesterol 172 mg/dL (0-200); Estimated Glomerular Filt Rate > 60; Glucose 103 mg/dL (65-110); HDL Direct 51 mg/dL; Potassium 4.3 mmol/L (3.4-5.0); Sodium 139 mmol/L (137-145); Total Protein 7.4 g/dL (6.3-8.2); Triglycerides 111 mg/dL (<150)
== END 2024-11-05 08:28 | disposition home or self-care (01) ==
LOC: ANHGOSHLAB 08:28
PROVIDERS: PCP Nurse Practitioner Family; Visit Provider Nurse Practitioner Family
DX: E78.2 Mixed hyperlipidemia (principal); I10 Essential (primary) hypertension
CPT/HCPCS: 36415; 80053; 80061

== ENCOUNTER 2024-12-03 08:01 | Outpatient (CLI) | payer OTHER, SELFPAY ==
--- OUTSIDE RECORDS SUMMARY | 2024-12-03 08:39 | XMS_ITS | Patient Health Record ---
Author Organization [facility] Address [address] [place] [address] Care Team Providers Care Bonding Equipment Operator Name Role Phone BrianDiallo alva Primary Care Provider Unavailab monique RAMOS MD, [...] End Date [place] [address] [place] [address] [phone] [id number] Amanda Romero Self - patient is the insured [employer] [address] [place], [place] [id number] [phone] [id number] Amanda Romero Self - patient is the insured [place] [address] [place], [place] [id number] Amanda Romero Self - patient is the insured Medical (General) History Medical History History ICD Code Appendiceal carcinoid Anxiety Depression Hypertension GERD Surgical History Surgery Date(Month/Year) Hysterectomy Right colectomy Colonoscopy 2017
--- OUTSIDE RECORDS SUMMARY | 2024-12-03 08:39 | XMS_ITS | Clinical Summary ---
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
[2024-12-03 19:31] LABS: Anion Gap 8 mmol/L (4-12); Blood Urea Nitrogen 19 mg/dL (7-17); Calcium 9.2 mg/dL (8.4-10.2); Carbon Dioxide 26 mmol/L (22-30); Chloride 104 mmol/L (98-107); Estimated Glomerular Filt Rate > 60; Glucose 90 mg/dL (65-110); Potassium 4.2 mmol/L (3.4-5.0); Sodium 138 mmol/L (137-145)
[2024-12-03 19:34] LABS: Hematocrit 36.8 % (37.0-47.0); Hemoglobin 12.2 g/dL (12.0-15.0); Immature Granulocyte Percent A 0.5 % (0-0.5); Lymphocytes Absolute Auto 2.32 K/mm3 (0.9-3.2); Mean Corpuscular HGB Conc 33.2 g/dl (32-36); Mean Corpuscular Hemoglobin 31.4 pg (26-34); Mean Corpuscular Volume 94.6 fl (80-100); Nucleated Red Blood Cells Absolute Auto 0.000 K/mm3 (0.0-0.012); Nucleated Red Blood Cells Perc 0.0 % (0.0-0.2); Platelet Count Result 261 k/mm3 (150-375); Red Blood Count 3.89 M/mm3 (4.2-5.4); White Blood Count 6.2 K/mm3 (4.5-10.0)
== END 2024-12-03 08:02 | disposition home or self-care (01) ==
LOC: ANHGOSHLAB 08:02
PROVIDERS: PCP Nurse Practitioner Family; Visit Provider Nurse Practitioner Family
DX: H53.8 Other visual disturbances (principal)
CPT/HCPCS: 36415; 80048; 85025